=== PATIENT | male | born 1980 | race Caucasian/White ===

== ENCOUNTER 2021-10-13 10:24 | Emergency (ER) | payer OTHER ==
[~2021-10-13] VITALS: Ht 182.9 cm; Wt 75.0 kg
[2021-10-13] MEDS: IBUPROFEN 600 MG TABLET PO ONE (12:47)
[2021-10-13] MEDS: BACLOFEN 10 MG TABLET PO ONE (12:47)
[2021-10-13 15:01] VITALS: BP 123/70
== END 2021-10-13 15:05 | disposition home or self-care (01) ==
LOC: EMS 10:29
DX: S39.012A Strain of muscle, fascia and tendon of lower back, initial encounter (principal); V49.49XA Driver injured in collision with other motor vehicles in traffic accident, initial encounter; Y93.89 Activity, other specified; Y92.89 Other specified places as the place of occurrence of the external cause; Y99.8 Other external cause status
CPT/HCPCS: 72040; 72070; 72100; 99284; Z7502; Z7610